=== PATIENT | male | born 1985 ===

== ENCOUNTER 2025-01-14 14:49 | Outpatient (AMB) | payer OTHER, SELFPAY ==
--- NOTE | 2025-01-14 14:51 | A.OFFPC_ITS ---
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 Trial Manager Required: No Accompanied by: Self / Same As Patient Allergies No Known Allergies Allergy (Verified 01/14/25 14:52) Tobacco use date assessed: 01/14/25 Dental Screening Dental Screen Date: 01/14/25 Did you have a dental visit in the last 12 months?: Yes Did you have a dental problem in the last 6 months where you did not have access to dental care?: No Was dental information given to patient?: Patient has dentist HPI HPI Comments History of Present Illness Details History of Present Illness The patient is a 39-year-old male presenting with heartburn, lumps on the body, and concerns about sleep apnea. Gastroesophageal Reflux Disease (GERD): - The patient reports experiencing heart burn daily, particularly at night, which sometimes requires inducing vomiting for relief. - The symptoms have been persistent and are exacerbated by lying down shortly after eating. - The patient consumes a diet high in ju nk food and has a history of substance use, which may contribute to the condition. Obstructive Sleep Apnea (suspected): - The patient reports heavy snoring and waking up gasping for air, which suggests possible obstructive sleep apnea. - The patient experiences daytime sleepi ness, particularly when not actively engaged in work. Lipoma (suspected): - The patient has a lump on the left jaw line present for approximately three years, which has grown slightly over time. - Another lump is located on the lower b ack, present for about four years, with no associated pain. Obesity, Class 1: - The patient's BMI is in the Class 1 ob esity range, attributed to a diet high in junk food and limited physical activity. History of cocaine use: - The patient has a history of cocaine u se for four years, now abstinent for one year. - The patient experienced an overdose tw o years ago, which served as a wake-up call to cease usage. Health Maintenance - Blood work including CBC, liver and ki dney function tests, electrolytes, hemoglobin A1c, lipid profile, TSH, vitamin D, hepatitis B and C, HIV, and STI screening were planned. - Lifestyle modifications discussed incl ude dietary changes and weight management strategies. Review of Systems - Gastrointestinal: Reports daily heartb urn, especially at night. Denies abdominal pain. - Respiratory: Reports heavy snoring and waking up gasping for air. Denies dyspnea during the day. - General: Denies fever, chills, or sign ificant weight loss. 10-point ROS reviewed and negative excep t as noted in HPI Current Substance Use - The patient smokes cigarettes, approxi mately 10 per day, and uses marijuana regularly. Substance Use History - The patient has a history of cocaine u se for four years, now abstinent for one year. - The patient experienced an overdose tw o years ago, which served as a wake-up call to cease usage. Past Medical History - History of cocaine use with a signific ant overdose event two years ago. 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 - The patient has a history of substance use, including cocaine, cigarettes, and marijuana. - The patient has a family, including a and children, and recently became a grandfather. Physical Exam - Respiratory: Lungs clear to auscultati on bilaterally - General: No swelling of legs, no abdom inal pain reported - Oral: No abnormalities noted upon insp ection Discussion Notes I discussed with the patient the importance of addressing his heartburn through lifestyle modifications, such as avoiding lying down immediately after eating and reducing junk food intake. We also talked about the potential need for an ultrasound to evaluate the lumps and a home sleep study to assess for sleep apnea. I recommended an electrocardiogram to monitor heart health due to his history of cocaine use. Follow-up was advised to review lab results and assess the effectiveness of the prescribed omeprazole. Plan 1. Gastro-esophageal reflux disease with out esophagitis K21.9 - Prescribed omeprazole 20 mg daily. - Suggested lifestyle modifications rega rding diet and meal timing. 2. Obstructive Sleep Apnea (Suspected) - Proposed a home sleep study for diagno sis. 3. Lipoma (Suspected) - Planned ultrasound evaluation of lumps . 4. Obesity, Class 1 - Discussed dietary changes and increase d physical activity to aid weight loss. 5. History Of Cocaine Use - Recommended an electrocardiogram to as sess cardiac function due to past cocaine use. Patient Instructions - Take omeprazole 20 mg every morning as prescribed. - Wait at least two hours after eating b efore lying down. - Reduce intake of junk food and conside r healthier dietary options. - Follow up in two weeks to review lab r esults and discuss the effectiveness of treatment. PFSH Family History (Updated 01/14/25 @ 15:10 by Yohana Mccoy MA) Father No problems noted. Mother Cancer Social History (Updated 01/14/25 @ 15:10 by Yohana Mccoy MA) Housing: House Alcohol intake: current Alcohol intake frequency: holidays/special occasions only Patient Tobacco Use Status: Current everyday Tobacco user Cigarettes Per Day: 10 Substance Use Type: Marijuana service: No Current occupational status: employed Cognitive needs: No Hearing needs: No Vision needs: No Questionnaire PHQ-9 Over the last 2 weeks, how often have you been bothered by any of the following problems? 1. Little interest or pleasure in doing things: not at all 2. Feeling down, depressed, or hopeless: not at all 3. Trouble falling or staying asleep, or sleeping too much: not at all 4. Feeling tired or having little energy: nearly every day 5. Poor appetite or overeating: not at all 6. Feeling bad about yourself - or that you are a failure or have let yourself or your family down: not at all 7. Trouble concentrating on things, such as reading the newspaper or watching television: not at all 8. Moving or speaking so slowly that other people could have noticed. Or the opposite - being so fidgety or restless that you have been moving around a lot more than usual: not at all 9. Thoughts that you would be better off or of hurting yourself in some way: not at all Total score: 3 Depression Screening Interpretation: Negative Depression Screening Done: Yes Source: Developed by Drs. Luis Ceja, Tammy Velez, Billy Brown and colleagues, with an educational kelly from [employer]. Thrive Questionnaire Date Thrive assessed: 01/14/25 I am a: Patient What is your living situation today?: I have a steady place to live Within the past 12 months, did the food you bought not last and you didn't have the money to get more?: Never true Within the past 12 months, did you worry whether your food would run out before you got money to buy more?: Never true Do you have trouble paying for medicines?: No Do you have trouble getting transportation to medical appointments?: No Do you have trouble paying your heating and electricity bill?: No Do you have trouble taking care of your child, family member or friend?: No Are you currently unemployed and looking for a job?: Yes Are you interested in more education?: No Please select the resources that you would like help with: None Currently or been in a relationship where the following occur: No concerns reported THRIVE Score: 0 AUDIT C Alcohol Use Questionnaire (AUDIT-C) 1. How often do you have a drink containing alcohol?: Monthly or less 2. How many drinks containing alcohol do you have on a typical day when you are drinking?: 1 or 2 3. How often do you have six or more drinks on one occasion?: Never Total Score: 1 WM-7 AMB Questionnaire WM-7 Date WM - 7 assessed: 01/14/25 Feeling nervous, anxious, or on edge: 0 = Not at all Not being able to stop or control worryin = Not at all Worrying too much about different things: 0 = Not at all Trouble relaxin = Not at all Being so restless that it is hard to sit still: 0 = Not at all Becoming easily annoyed or irritable: 0 = Not at all Feeling afraid as if something awful might happen: 0 = Not at all Total WM-7 score (0-4 normal; 5-9 mild; 10-14 moderate; 15-21 severe): 0 Source: Developed by Drs. Luis Ceja, Tammy Velez, Billy Brown and colleagues, with an educational kelly from [employer]. Physical exam (Primary Care) Vital Signs: Last Vital Signs Temp 97.5 F 01/14/25 15:11 Pulse 89 01/14/25 15:11 Resp 16 01/14/25 15:11 BP 114/82 01/14/25 15:11 Pulse Ox 96 01/14/25 15:11 Oxygen Delivery Method Room Air 01/14/25 15:11 BMI result Body Mass Index 32.2 Tobacco/Smoking Status: Tobacco use Status Tobacco use date assessed 01/14/25 01/14/25 14:54 Patient Tobacco Use Status Current everyday Tobacco 01/14/25 15:17 PHQ-9: PHQ-9 Score PHQ-9: Total score 3 01/14/25 15:17 Depression Screening Interpretation: Negative Thrive Assessment: Date of Thrive Assessment Date Thrive assessed 01/14/25 01/14/25 14:54 Currently or been in a relationship where the following occur: No concerns reported Coding Level of Care Code New Pt Level 3 (19637) Diagnoses Establishing care with new doctor, encounter for Z76.89 Routine lab draw Z01.89 Counseling, unspecified Z71.9 Encounter for screening, unspecified Z13.9 Class 1 obesity E66.811 Snoring R06.83 History of cocaine use F14.91 History of drug overdose Z91.89 History of hypertension Z86.79 Fatigue R53.83 Screening for depression Z13.31 Screening for diabetes mellitus Z13.1 Screening for lipoid disorders Z13.220 Mass of jaw M27.8 Mass on back R22.2 Gastric reflux K21.9 Assessment & Plan Assessment & Plan (1) Establishing care with new doctor, encounter for: Code(s): Z76.89 - Persons encountering health services in other specified circumstances (2) Routine lab draw: Code(s): Z01.89 - Encounter for other specified special examinations (3) Counseling, unspecified: Code(s): Z71.9 - Counseling, unspecified (4) Encounter for screening, unspecified: Code(s): Z13.9 - Encounter for screening, unspecified (5) Class 1 obesity: Code(s): E66.811 - Obesity, class 1 (6) Snoring: Code(s): R06.83 - Snoring (7) History of cocaine use: Code(s): F14.91 - Cocaine use, unspecified, in remission (8) History of drug overdose: Code(s): Z91.89 - Other specified personal risk factors, not elsewhere classified (9) History of hypertension: Code(s): Z86.79 - Personal history of other diseases of the circulatory system (10) Fatigue: Code(s): R53.83 - Other fatigue (11) Screening for depression: Code(s): Z13.31 - Encounter for screening for depression (12) Screening for diabetes mellitus: Code(s): Z13.1 - Encounter for screening for diabetes mellitus (13) Screening for lipoid disorders: Code(s): Z13.220 - Encounter for screening for lipoid disorders (14) Mass of jaw: Code(s): M27.8 - Other specified diseases of jaws (15) Mass on back: Code(s): R22.2 - Localized swelling, mass and lump, trunk (16) Gastric reflux: Code(s): K21.9 - Gastro-esophageal reflux disease without esophagitis Plan Orders: Orders Complete Blood Count Auto Diff Today Z13.9 - Encounter for screening, unspecifi ed, Z76.89 - Persons encountering health services in other specified circumstances Hepatitis B Surface Antigen Today Z13.9 - Encounter for screening, unspecified, Z76.89 - Persons encountering health services in other specified circumstances Magnesium Today Z13.9 - Encounter for screening, unspecified, Z76.89 - Persons encountering health services in other specified circumstances UA CC w/rflx Micro + Cult Today Z13.9 - Encounter for screening, unspecified, Z76.89 - Persons encountering health services in other specified circumstances Vitamin D 1,25 dihydroxy Today Z13.9 - Encounter for screening, unspecified, Z76.89 - Persons encountering health services in other specified circumstances Chlamydia Species Ab Panel Today Z13.9 - Encounter for screening, unspecified, Z76.89 - Persons encountering health services in other specified circumstances CT NG by PCR Urine Today Z13.9 - Encounter for screening, unspecified, Z76.89 - Persons encountering health services in other specified circumstances Syphilis Screen Today Z13.9 - Encounter for screening, unspecified, Z76.89 - Persons encountering health services in other specified circumstances TSH reflex Free T4 Today Z13.9 - Encounter for screening, unspecified, Z76.89 - Persons encountering health services in other specified circumstances ECG 12 lead EKG Today F14.91 - Cocaine use, unspecified, in remission US soft tiss head and/or neck Today M27.8 - Other specified diseases of jaws US abdomen complete Today R22.2 - Localized swelling, mass and lump, trunk Comprehensive Met. Panel Today Z13.9 - Encounter for screening, unspecified, Z76.89 - Persons encountering health services in other specified circumstances Hemoglobin A1c Today Z13.9 - Encounter for screening, unspecified, Z76.89 - Persons encountering health services in other specified circumstances Hepatitis B Surface Antibody Today Z13.9 - Encounter for screening, unspecified, Z76.89 - Persons encountering health services in other specified circumstances Hepatitis C Antibody Today Z13.9 - Encounter for screening, unspecified, Z76.89 - Persons encountering health services in other specified circumstances HIV Ab/Ag Today Z13.9 - Encounter for screening, unspecified, Z76.89 - Persons encountering health services in other specified circumstances Lipid Panel Today Z13.9 - Encounter for screening, unspecified, Z76.89 - Persons encountering health services in other specified circumstances RT home sleep study Today R06.83 - Snoring Medications: New omeprazole 20 mg PO DAILY 30 caps 0RF
[2025-01-14 15:11] VITALS: BP 114/82; PULSE 89; RESP 16; TEMP 36.4; O2SAT 96; BMI 32.2
== END 2025-01-14 15:50 | disposition home or self-care (01) ==
LOC: HO.HMCFMS 14:50
PROVIDERS: PCP Student in an Organized Health Care Education/Training Program; Visit Provider Student in an Organized Health Care Education/Training Program
DX: K21.9 Gastro-esophageal reflux disease without esophagitis (principal); R06.83 Snoring; F14.91 Cocaine use, unspecified, in remission; R53.83 Other fatigue; M27.8 Other specified diseases of jaws; E66.811 Obesity, class 1; R22.2 Localized swelling, mass and lump, trunk

== ENCOUNTER 2025-01-14 14:49 | Outpatient (REF) | payer OTHER, SELFPAY ==
[2025-01-14 17:36] LABS: Appearance Urine Clear; Glucose Urine UA Negative (Negative); PH 6.5 (5.0-9.0); Specific Gravity - Urine 1.020 (1.005-1.025)
[2025-01-14 17:39] LABS: MANUAL DIFF FLAG NO
[2025-01-14 17:48] LABS: Hematocrit 47.7 % (42.0-52.0); Hemoglobin 16.5 g/dl (14.0-18.0); Imm Gran Abs Auto 0.03 X10*3/uL (0.00-0.03); Imm Gran Pct Auto 0.4 % (0.0-0.4); Lymphocytes Absolute Auto 3.2 X10*3/uL (1.2-4.9); Mean Corpuscular HGB Conc 34.6 g/dl (31.0-36.0); Mean Corpuscular Hemoglobin 29.1 pg (27.0-33.0); Mean Corpuscular Volume 84.1 fL (80.0-98.0); NRBC Abs Auto 0.000 X10*3/uL (0.0-0.012); NRBC Pct Auto 0.0 /100WBC (0.0-0.2); Platelet Count 360 X10*3/uL (160-400); Red Blood Count 5.67 X10*6/uL (4.60-5.80); White Blood Count 8.5 X10*3/uL (4.8-10.8)
[2025-01-14 18:11] LABS: Alanine Aminotransferase 45 U/L (0-40); Albumin Level 4.7 g/dL (3.5-5.0); Alkaline Phosphatase 86 U/L (39-117); Anion Gap 14 (12-20); Aspartate Amino Transferase 64 U/L (5-37); Blood Urea Nitrogen 17 mg/dL (9-16); Calcium 9.4 mg/dL (8.4-10.2); Carbon Dioxide 26 mmol/L (22-29); Chloride 106 mmol/L (96-108); Cholesterol 267 mg/dL (<200); Estimated Glomerular Filt Rate 55; HDL Cholesterol 40 mg/dL (>40); Magnesium 2.3 mg/dL (1.6-2.6); Potassium 3.7 mmol/L (3.3-5.1); Sodium 142 mmol/L (135-145); Total Protein 7.8 g/dL (6.5-8.0); Triglycerides 364 mg/dL (<150)
[2025-01-16 04:59] LABS: Syphilis Screen Nonreactive (Nonreactive)
[2025-01-16 05:17] LABS: HBS Num1 3.63 mIU/mL (0-7.99); HBsAGNum1 0.59 S/CO (0.00-0.99); HIV Num 1 0.04 S/CO (0.00-0.99); Hepatitis B Surface Antigen Negative (Negative); ~HepC Num1 0.07 S/CO (0.00-0.79); ~Hepatitis B Surface Antibody NONREACTIVE (Nonreactive); ~Hepatitis C Antibody Nonreactive (Nonreactive)
[2025-01-20 21:28] LABS: VITAMIN D (1,25 OH) D3 41 pg/mL; Vit D (1,25-Dihydroxy) Total 41 pg/mL (18-72); Vitamin D (1,25 OH) D2 <8 pg/mL
[2025-01-21 13:24] LABS: Chlamydia Pneumoniae Interp. Past Infection; Chlamydia Trachomatis IgA <1:16 titer (<1:16)
== END 2025-01-14 14:50 | disposition home or self-care (01) ==
LOC: HO.HKASLDS 14:49
PROVIDERS: PCP Student in an Organized Health Care Education/Training Program; Visit Provider Student in an Organized Health Care Education/Training Program
DX: Z76.89 Persons encountering health services in other specified circumstances (principal); Z13.9 Encounter for screening, unspecified; Z01.89 Encounter for other specified special examinations; Z13.31 Encounter for screening for depression; Z13.1 Encounter for screening for diabetes mellitus; Z13.220 Encounter for screening for lipoid disorders; M27.8 Other specified diseases of jaws; R06.83 Snoring; R53.83 Other fatigue; R22.2 Localized swelling, mass and lump, trunk; K21.9 Gastro-esophageal reflux disease without esophagitis; E66.811 Obesity, class 1; Z71.9 Counseling, unspecified; F14.91 Cocaine use, unspecified, in remission; Z91.89 Other specified personal risk factors, not elsewhere classified; Z86.79 Personal history of other diseases of the circulatory system
CPT/HCPCS: 36415; 80053; 80061; 81003; 82652; 83036; 83735; 84443; 85025; 86631; 86632; 86706; 86780; 86803; 87340; 87389; 99202

== ENCOUNTER 2025-01-29 08:45 | Outpatient (AMB) | payer OTHER, SELFPAY ==
[2025-01-29 08:48] VITALS: BP 132/88; PULSE 84; RESP 16; TEMP 36.4; O2SAT 99; BMI 32.2
--- NOTE | 2025-01-29 08:48 | A.OFFPC_ITS ---
Vital Signs 01/29/25 08:48 Height 5 ft 7.91 in Weight 211 lb 6 oz BMI 32.2 BP 132/88 Blood Pressure Location Rt brachial Position Sitting Respiration 16 Pulse 84 Pulse Source Pulse Oximeter Temp 97.5 F Temp Source Oral Pulse Oximetry (%) 99 Oxygen Delivery Method Room Air Intake Visit Reasons: 2 week follow up Intake Note: establish care get heart burn all ways and lump on jaw. 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 Chronic Kidney Disease Stage 3: - The patient has been diagnosed with ronic kidney disease stage 3, with an estimated glomerular filtration rate of 55 mL/min/1.73 m?. - There is no known family history of ki dney disease or dialysis use. - The patient reports a history of heavy partying, which may have contributed to the condition. - he also admits using ibuprofen due to toothache Elevated Liver Enzymes: - The patient has elevated liver enzymes , with AST at 64 U/L and ALT at 45 U/L. - The patient admits to recent alcohol c onsumption, which may be contributing to the liver enzyme elevation. Hypertriglyceridemia: - The patient's triglyceride level is el evated at 367 mg/dL, significantly above the normal cutoff of 150 mg/dL. Hypercholesterolemia: - The patient's cholesterol level is lamonte vated at 267 mg/dL, with LDL cholesterol at 155 mg/dL. Fatty Liver Disease (suspected): - The patient is suspected to have fatty liver disease, and an ultrasound of the liver is planned to confirm the diagnosis. Review of Systems - General: Reports feeling low energy. 10-point ROS reviewed and negative excep t as noted in HPI Past Medical History Health Maintenance - Lifestyle modifications discussed, inc luding alcohol cessation and dietary changes. - Referral to a member service specialist for dietary management. Physical Exam General: Well-appearing, in no acute distress. Vital signs: Within normal limits. HEENT: Normocephalic, atraumatic. PERRLA, EOMI. Conjunctiva clear, sclera anicteric. Oropharynx clear, mucous membranes moist. TMs intact bilaterally. Neck: Supple, no lymphadenopathy, no thyromegaly, no JVD or carotid bruits. Cardiovascular: RRR, normal S1/S2, no murmurs, rubs, or gallops. Peripheral pulses 2+ and symmetric. No edema. Respiratory: Lungs clear to auscultation bilaterally, no wheezes, rales, or rhonchi. Normal effort. Abdomen: Soft, non-tender, non-distended. Normoactive bowel sounds. No hepatosplenomegaly, no masses. MSK: Full range of motion, no joint swelling or deformity. Normal gait. Skin: Warm, dry, intact. No rashes, lesions, or pallor. Neuro: Alert and oriented x3. Cranial nerves II-XII intact. Strength 5/5 throughout. Sensation intact. Reflexes 2+ symmetric. Normal coordination and gait. Psych: Appropriate mood and affect. Normal judgment and insight. Plan 1. Chronic kidney disease, stage 3 unspe cified N18.30 HCC 138 - Monitor kidney function and obtain an ultrasound of the kidneys to assess structural changes. - Advise cessation of nephrotoxic medica tions such as ibuprofen. 2. Abnormal levels of other serum enzyme s R74.8 - Plan for an ultrasound of the liver to evaluate for fatty liver disease. - Recommend alcohol cessation to reduce liver strain. 3. Mixed hyperlipidemia E78.2 - Referral to a member service specialist for dietary management to address elevated triglycerides. 4. Hypercholesterolemia - Lifestyle modifications including diet olena changes and referral to a member service specialist. 5. Fatty Liver Disease (Suspected) - Plan for an ultrasound of the liver to confirm the diagnosis of fatty liver disease. Discussion Notes I discussed with the patient the findings of chronic kidney disease stage 3 and elevated liver enzymes. We talked about the importance of lifestyle modifications, including alcohol cessation and dietary changes, to manage these conditions. I recommended obtaining ultrasounds of the kidneys and liver to further evaluate the structural status and potential fatty liver disease. The patient was advised to avoid nephrotoxic medications like ibuprofen. A referral to a member service specialist was made to assist with dietary management. Follow-up will be scheduled after imaging results are available. Patient was informed and verbally consented to the use of an ambient scribe for clinic note documentation during this visit. Patient Instructions - Avoid alcohol and nephrotoxic medicati ons like ibuprofen. - Follow a healthy diet and consider con sulting with a member service specialist. - Schedule and complete ultrasounds of t he kidneys and liver. - Return for follow-up after imaging res ults are available. [facility] Medical History (Updated 01/29/25 @ 08:52 by Clarence Hopkins MD) Class 1 obesity Family History (Updated 01/14/25 @ 15:10 by Yohana Mccoy MA) Father No problems noted. Mother Cancer Social History (Updated 01/14/25 @ 15:10 by Yohana Mccoy MA) Housing: House Alcohol intake: current Alcohol intake frequency: holidays/special occasions only Patient Tobacco Use Status: Current everyday Tobacco user Cigarettes Per Day: 10 Substance Use Type: Marijuana service: No Current occupational status: employed Cognitive needs: No Hearing needs: No Vision needs: No Questionnaire PHQ-9 Over the last 2 weeks, how often have you been bothered by any of the following problems? 1. Little interest or pleasure in doing things: not at all 2. Feeling down, depressed, or hopeless: not at all 3. Trouble falling or staying asleep, or sleeping too much: not at all 4. Feeling tired or having little energy: nearly every day 5. Poor appetite or overeating: not at all 6. Feeling bad about yourself - or that you are a failure or have let yourself or your family down: not at all 7. Trouble concentrating on things, such as reading the newspaper or watching television: not at all 8. Moving or speaking so slowly that other people could have noticed. Or the opposite - being so fidgety or restless that you have been moving around a lot more than usual: not at all 9. Thoughts that you would be better off or of hurting yourself in some way: not at all Total score: 3 Depression Screening Interpretation: Negative Depression Screening Done: Yes Source: Developed by Drs. Luis Ceja, Tammy Velez, Billy Brown and colleagues, with an educational kelly from [employer]. Thrive Questionnaire Date Thrive assessed: 01/14/25 I am a: Patient What is your living situation today?: I have a steady place to live Within the past 12 months, did the food you bought not last and you didn't have the money to get more?: Never true Within the past 12 months, did you worry whether your food would run out before you got money to buy more?: Never true Do you have trouble paying for medicines?: No Do you have trouble getting transportation to medical appointments?: No Do you have trouble paying your heating and electricity bill?: No Do you have trouble taking care of your child, family member or friend?: No Are you currently unemployed and looking for a job?: Yes Are you interested in more education?: No Please select the resources that you would like help with: None Currently or been in a relationship where the following occur: No concerns reported THRIVE Score: 0 AUDIT C Alcohol Use Questionnaire (AUDIT-C) 1. How often do you have a drink containing alcohol?: Monthly or less 2. How many drinks containing alcohol do you have on a typical day when you are drinking?: 1 or 2 3. How often do you have six or more drinks on one occasion?: Never Total Score: 1 WM-7 AMB Questionnaire WM-7 Date WM - 7 assessed: 01/14/25 Feeling nervous, anxious, or on edge: 0 = Not at all Not being able to stop or control worryin = Not at all Worrying too much about different things: 0 = Not at all Trouble relaxin = Not at all Being so restless that it is hard to sit still: 0 = Not at all Becoming easily annoyed or irritable: 0 = Not at all Feeling afraid as if something awful might happen: 0 = Not at all Total WM-7 score (0-4 normal; 5-9 mild; 10-14 moderate; 15-21 severe): 0 Source: Developed by Drs. Luis Ceja, Tammy Velez, Billy Brown and colleagues, with an educational kelly from [employer]. Physical exam (Primary Care) Tobacco/Smoking Status: Tobacco use Status Tobacco use date assessed 01/14/25 01/14/25 14:54 Patient Tobacco Use Status Current everyday Tobacco 01/14/25 15:17 Depression Screening Interpretation: Negative Thrive Assessment: Date of Thrive Assessment Date Thrive assessed 01/14/25 01/14/25 14:54 Currently or been in a relationship where the following occur: No concerns reported Coding Level of Care Code Est Pt Level 3 (46359) Diagnoses Encounter to discuss test results Z71.2 Azotemia R79.89 Elevated serum creatinine R79.89 Elevated BUN R79.9 Chronic kidney disease (CKD) stage G3a/A1, moderately decreased glomerular filtration rate (GFR) between 45-59 mL/min/1.73 square meter and albuminuria creatinine ratio less than 30 mg/g N18.31 Elevated liver enzymes R74.8 Elevated cholesterol with high triglycerides E78.2 Elevated LDL cholesterol level E78.00 Class 1 obesity E66.811 Assessment & Plan Assessment & Plan (1) Encounter to discuss test results: Code(s): Z71.2 - Person consulting for explanation of examination or test findings (2) Azotemia: Code(s): R79.89 - Other specified abnormal findings of blood chemistry (3) Elevated serum creatinine: Code(s): R79.89 - Other specified abnormal findings of blood chemistry (4) Elevated BUN: Code(s): R79.9 - Abnormal finding of blood chemistry, unspecified (5) Chronic kidney disease (CKD) stage G3a/A1, moderately decreased glomerular filtration rate (GFR) between 45-59 mL/min/1.73 square meter and albuminuria creatinine ratio less than 30 mg/g: Code(s): N18.31 - Chronic kidney disease, stage 3a (6) Elevated liver enzymes: Code(s): R74.8 - Abnormal levels of other serum enzymes (7) Elevated cholesterol with high triglycerides: Code(s): E78.2 - Mixed hyperlipidemia (8) Elevated LDL cholesterol level: Code(s): E78.00 - Pure hypercholesterolemia, unspecified (9) Class 1 obesity: Code(s): E66.811 - Obesity, class 1 Category: Medical Plan Orders: Orders US abdomen limited Today E78.2 - Mixed hyperlipidemia, R74.8 - Abnormal levels of other serum enzymes US retroperitoneal limited Today N18.31 - Chronic kidney disease, stage 3a, R79.89 - Other specified abnormal findings of blood chemistry, R79.9 - Abnormal finding of blood chemistry, unspecified Referrals Nutrition/Dietitian Referral E66.811 - Obesity, class 1
== END 2025-01-29 09:08 | disposition home or self-care (01) ==
LOC: HO.HMCFMS 08:45
PROVIDERS: PCP Student in an Organized Health Care Education/Training Program; Visit Provider Student in an Organized Health Care Education/Training Program
DX: R79.89 Other specified abnormal findings of blood chemistry (principal); R79.9 Abnormal finding of blood chemistry, unspecified; N18.31 Chronic kidney disease, stage 3a; R74.8 Abnormal levels of other serum enzymes; E78.2 Mixed hyperlipidemia; E78.00 Pure hypercholesterolemia, unspecified; E66.811 Obesity, class 1

== ENCOUNTER 2025-01-29 08:45 | Outpatient (REF) | payer OTHER, SELFPAY ==
[2025-01-29 16:11] LABS: CT PCR Urine NOT DETECTED (Not Detect.); NG PCR Urine NOT DETECTED (Not Detect.)
== END 2025-01-29 08:46 | disposition home or self-care (01) ==
LOC: HO.HKASLDS 08:45
PROVIDERS: Visit Provider Student in an Organized Health Care Education/Training Program
DX: Z76.89 Persons encountering health services in other specified circumstances (principal); E66.811 Obesity, class 1; Z68.32 Body mass index [BMI] 32.0-32.9, adult; R74.8 Abnormal levels of other serum enzymes; E78.2 Mixed hyperlipidemia; N18.31 Chronic kidney disease, stage 3a; R79.89 Other specified abnormal findings of blood chemistry; R79.9 Abnormal finding of blood chemistry, unspecified; E78.00 Pure hypercholesterolemia, unspecified; Z20.2 Contact with and (suspected) exposure to infections with a predominantly sexual mode of transmission; F17.200 Nicotine dependence, unspecified, uncomplicated; Z71.2 Person consulting for explanation of examination or test findings; Z71.6 Tobacco abuse counseling; Z71.3 Dietary counseling and surveillance
CPT/HCPCS: 87491; 87591; 99212

== ENCOUNTER 2025-03-26 09:29 | Outpatient (REF) | payer OTHER, SELFPAY ==
--- NOTE | ~2025-03-26 | US_ITS ---
EXAMINATION: US SOFT TISSUE HEAD AND/OR NECK CLINICAL INFORMATION: 39-year-old male, palpable lump left neck, submandibular region. COMPARISON: None available. TECHNIQUE: Linear transducer painting-scale and color Doppler examination with attention to the left submandibular palpable focus was performed. FINDINGS: Within the left submandibular region, possibly within the submandibular gland or directly abutting, there is a hypoechoic lobular mass measuring 2.4 x 1.5 x 2.0 cm, with good through transmission, internal color Doppler flow, and a suggestion of a small fatty hilum. This appears to correlate well with the palpable focus. This most likely represents a lymph node although other etiologies are not excluded. No additional abnormality is evident. US/US soft tiss head and/or neck IMPRESSION: 1. Lobular hypoechoic mass as detailed in the left submandibular region correlating with the area of palpable concern. This has a suggestion of a small fatty hilum and may represent an abnormal lymph node. Other etiologies such as a primary salivary neoplasm are not excluded. Consider dedicated CT neck for more definitive characterization. Electronically signed by: Levy Curtis MD 03/26/2025 10:58 AM [facility]
--- NOTE | ~2025-03-26 | US_ITS ---
EXAMINATION: US ABDOMEN LIMITED CLINICAL INFORMATION: Elevated LFTs. COMPARISON: None available. TECHNIQUE: Real-time imaging of the right upper quadrant abdominal viscera. FINDINGS: PANCREAS: Visualized portions are unremarkable. LIVER: The liver is normal in size. The right hepatic lobe measures 15.4 cm. The liver contour is normal. There is mildly diffusely increased liver parenchymal echogenicity, consistent with hepatic steatosis. No suspicious focal hepatic lesion. There are a few tiny biliary cysts present, the largest measuring 10 mm in the right hepatic lobe. There is no intrahepatic biliary duct dilatation seen. GALLBLADDER: The gallbladder is physiologically distended without evidence of stones, sludge, polyps, wall thickening or pericholecystic fluid. Negative sonographic Hansen's sign. COMMON BILE DUCT: Normal in caliber measuring 0.3 cm in diameter. RIGHT KIDNEY: No hydronephrosis. No suspicious focal parenchymal lesions. The kidney measures 10.4 cm in maximum dimension. There is a echogenic focus in the lower pole measuring 3 mm, possibly a nonobstructing calculus. FREE FLUID: None. US/US abdomen limited IMPRESSION: 1. Mild diffusely increased echogenicity of the liver, suggestive of steatosis. No suspicious liver lesion. 2. Normal gallbladder and bile ducts. 3. Echogenic 3 mm focus in the lower pole of the right kidney, possibly representing a nonobstructing calculus. Electronically signed by: Levy Curtis MD 03/26/2025 10:53 AM [facility]
== END 2025-03-26 09:30 | disposition home or self-care (01) ==
LOC: HO.US 09:29
PROVIDERS: PCP Student in an Organized Health Care Education/Training Program; Visit Provider Student in an Organized Health Care Education/Training Program
DX: M27.8 Other specified diseases of jaws (principal); R74.8 Abnormal levels of other serum enzymes; E78.2 Mixed hyperlipidemia; R22.2 Localized swelling, mass and lump, trunk
CPT/HCPCS: 76536; 76705

== ENCOUNTER → 2025-03-26 09:40 | Outpatient (BNV) | payer OTHER, SELFPAY | PROVIDERS: PCP Student in an Organized Health Care Education/Training Program; Visit Provider Radiology Diagnostic Radiology | DX: R93.421 Abnormal radiologic findings on diagnostic imaging of right kidney (principal); R93.2 Abnormal findings on diagnostic imaging of liver and biliary tract; R22.0 Localized swelling, mass and lump, head | CPT/HCPCS: 76536; 76705 ==

== ENCOUNTER → 2025-04-09 10:41 | Outpatient (REF) | payer OTHER, SELFPAY | LOC: HO.SL 10:41 | PROVIDERS: PCP Student in an Organized Health Care Education/Training Program; Visit Provider Student in an Organized Health Care Education/Training Program | DX: R06.83 Snoring (principal); E66.811 Obesity, class 1; Z68.32 Body mass index [BMI] 32.0-32.9, adult | CPT/HCPCS: 97802 ==

== ENCOUNTER → 2025-04-09 10:54 | Outpatient (BNV) | payer OTHER, SELFPAY | PROVIDERS: PCP Student in an Organized Health Care Education/Training Program; Visit Provider Psychiatry & Neurology Neurology | DX: G47.33 Obstructive sleep apnea (adult) (pediatric) (principal) | CPT/HCPCS: 95806 ==

== ENCOUNTER 2025-04-09 11:24 | Outpatient (AMB) | payer OTHER, SELFPAY ==
--- NOTE | 2025-04-09 11:27 | MHC.AMNUTRGE ---
VS Expanded 04/09/25 11:29 Height 5 ft 7.91 in Weight 211 lb BMI 32.2 Intake Visit Reasons: Obesity, class 1 Allergies No Known Allergies Allergy (Verified 01/29/25 08:52) Nutrition Presentation Details: Pt presents for MNT for obesity class 1 Hx of elevated Tg,Chol Pt reports hx of unhealthy eating/drinking/smoking habits, working on gradual modifications. Chooses high sugar beverages and foods in general. Reports increased appetite all the time B: coffee with milk/sugar/caramel L/D: fast food meals , sweetened beverages snacks: sugary snacks/cereals food frequency fish: 0/wk dairy: 3-4/d fruits: not including ve-3/wk physical activity: ADL Etoh/++ (working on reducing) BS Monitoring Most Recent Diabetes Results: Cholesterol, (<200) 267 mg/dL H 01/14/25 HDL Cholesterol, (>40) 40 mg/dL L 01/14/25 Triglycerides, (<150) 364 mg/dL H 01/14/25 Creatinine, (0.5-1.4) 1.45 mg/dL H 01/14/25 BUN, (9-16) 17 mg/dL H 01/14/25 Sodium, (135-145) 142 mmol/L 01/14/25 Potassium, (3.3-5.1) 3.7 mmol/L 01/14/25 Chloride, (96-108) 106 mmol/L 01/14/25 Carbon Dioxide, (22-29) 26 mmol/L 01/14/25 Calcium, (8.4-10.2) 9.4 mg/dL 01/14/25 AST, (5-37) 64 U/L H 01/14/25 ALT, (0-40) 45 U/L H 01/14/25 Total Protein, (6.5-8.0) 7.8 g/dL 01/14/25 Albumin, (3.5-5.0) 4.7 g/dL 01/14/25 [id number]-Zr.Jeor Equation Height: 5 ft 7.9 in Weight: 211 lb Resting Metabolic Rate: 1857.02 Calculated Activity Level: Mild Activity Calories Needed to Maintain Weight: 2553.40 Diagnosis Nutrition problem #1: overweight/obesity As related to (etiology) #1: lack of nutrit education and excess energy intake As evidenced by (sign/symptom) #1: high BMI and knowledge deficit of diet Monitoring/Goals Nutrition problem monitoring: level of knowledge/skill and weight Nutrition goal/outcome: list 3 high fiber foods (low sugar foods) [facility] Medical History (Updated 01/29/25 @ 08:52 by Clarence Hopkins MD) Class 1 obesity Family History Father No problems noted. Mother Cancer Social History Housing: House Alcohol intake: current Alcohol intake frequency: holidays/special occasions only Patient Tobacco Use Status: Current everyday Tobacco user Cigarettes Per Day: 10 Substance Use Type: Marijuana service: No Current occupational status: employed Cognitive needs: No Hearing needs: No Vision needs: No Assessment & Plan Assessment & Plan (1) Class 1 obesity: Code(s): E66.811 - Obesity, class 1 Category: Medical Plan: current wt: 96kg ( April 24 ) est kcal needs as per MSJ: 2500 est protein needs as per 1 g/kg BW: 100 est fluid needs as per 30 ml/kg BW: 2900 Recommended fiber > 12 g /day and gradually increase up to 25-28 g /day or as tolerated Nutrition topics discussed : Reviewed (R), Pt verbalized understanding (V) , not applicable (N/A) R, : Healthy Plate Method Concept: Reviewed healthier meal options when eating out Reviewed low sugar options R, V, N/A: Carbohydrates: food sources of carbohydrates, relationship of carbohydrates to blood glucose, fatty liver GI health. Recommended total amount of carbohydrates per meals and snack. Differences between simple carbohydrates and complex carbohydrates R, : Lean protein foods including vegan , vegetarian sources of protein. Benefits of protein (including but not limited to healing, nutritional value , benefits in weight loss, glucose control R, V, N/A: Fats : Source of fats, benefits of fats. Difference between saturated and unsaturated fats. Saturated fats and its contribution to inflammation R, V, N/A: Fiber: food sources and role of fiber in the diet (including but not limited to its role as a prebiotic, benefits in constipation, role in IBS , role in glucose control and cholesterol level) R, V, N/A: Hydration: role of hydration and prevention of dehydration or over hydration. Foods and water content. R, V, N/A: Vitamins and Minerals in foods and supplements R, V, N/A: Interpreting food labels, including serving size, macronutrients, vitamins, minerals, allergens, ingredient list , % daily value Patient Instructions: Continue working on reducing alcohol consumption Choose low sugar cereals, and low sugar beverages (see list of options) Coding Level of Care Code Nutr Indiv Intake (95739) Diagnoses Class 1 obesity E66.811 Time Spent (min) 30
[2025-04-09 11:29] VITALS: BMI 32.2
[2025-04-09 13:11] VITALS: BMI 32.2
== END 2025-04-09 14:08 | disposition home or self-care (01) ==
LOC: HO.ENCR 11:25
PROVIDERS: PCP Student in an Organized Health Care Education/Training Program; Visit Provider Dietitian, Registered
DX: E66.811 Obesity, class 1 (principal)

== ENCOUNTER 2025-04-16 15:25 | Outpatient (AMB) | payer OTHER, SELFPAY ==
--- NOTE | 2025-04-16 15:34 | A.OFFPC_ITS ---
Vital Signs 04/16/25 15:38 Height 5 ft 7.9 in Weight 217 lb 6 oz BMI 33.1 BP 123/81 Blood Pressure Location Lt brachial Position Sitting Respiration 18 Pulse 104 H Pulse Source Pulse Oximeter Temp 98.2 F Temp Source Oral Pulse Oximetry (%) 98 Oxygen Delivery Method Room Air Intake Visit Reasons: f/u - sleep study Intake Note: follow up sleep study Dog Food Dough Mixer Required: No Accompanied by: Self / Same As Patient Allergies No Known Allergies Allergy (Verified 04/16/25 15:37) Medication List - Last Reconciled 04/16/25 by Clarence Hopkins MD omeprazole 20 mg PO DAILY Tobacco use date assessed: 01/14/25 Dental Screening Dental Screen Date: 01/14/25 HPI HPI Comments History of Present Illness Details History of Present Illness The patient is a 39 year old male presenting for follow-up to review sleep study results. Severe Obstructive Sleep Apnea: The patient reports a history of heavy snoring and waking up gasping for air. He experiences daytime sleepiness, particularly when not actively engaged at work. The snoring has been disruptive to his marriage, at times requiring him to sleep in a separate room. After waking up gasping, it can take him a significant amount of time to fall back asleep. He rarely feels well-rested. A recent home sleep study confirmed a diagnosis of severe obstructive sleep apnea. Hyperlipidemia: Recent lab work showed elevated triglycerides and other lipids. Obesity: The patient's current weight is 217 lbs, with a corresponding Body Mass Index (BMI) of 33.1. Gastroesophageal Reflux Disease: The patient is currently taking omeprazole. Medications: - Omeprazole Social History: - The patient has been for 20 ye ars. - Reports sleeping in a separate bedroom at times due to his snoring. Diagnostic Results: - Home sleep study: Results are consiste nt with severe obstructive sleep apnea. - Labs: Results show high triglycerides and lipids. Past Medical History - Severe obstructive sleep apnea, newly diagnosed. - Hyperlipidemia - GERD, treated with omeprazole. Health Maintenance - Discussed weight management for improv ement of obstructive sleep apnea. - Advised that treating sleep apnea with CPAP can also help with weight loss, energy levels, and hyperlipidemia. [facility] Medical History (Updated 04/16/25 @ 19:25 by Clarence Hopkins MD) Metabolic syndrome Azotemia Chronic kidney disease, stage 3 Elevated triglycerides with high cholesterol Elevated liver enzymes Hyperlipidemia GERD (gastroesophageal reflux disease) Severe sleep apnea Lipoma Mass in neck Class 1 obesity Family History Father No problems noted. Mother Cancer Social History Housing: House Alcohol intake: current Alcohol intake frequency: holidays/special occasions only Patient Tobacco Use Status: Current everyday Tobacco user Cigarettes Per Day: 10 Substance Use Type: Marijuana service: No Current occupational status: employed Cognitive needs: No Hearing needs: No Vision needs: No Questionnaire Thrive Questionnaire Date Thrive assessed: 01/14/25 I am a: Patient What is your living situation today?: I have a steady place to live Within the past 12 months, did the food you bought not last and you didn't have the money to get more?: Never true Within the past 12 months, did you worry whether your food would run out before you got money to buy more?: Never true Do you have trouble paying for medicines?: No Do you have trouble getting transportation to medical appointments?: No Do you have trouble paying your heating and electricity bill?: No Do you have trouble taking care of your child, family member or friend?: No Are you currently unemployed and looking for a job?: Yes Are you interested in more education?: No Please select the resources that you would like help with: None Currently or been in a relationship where the following occur: No concerns reported THRIVE Score: 0 WM-7 AMB Questionnaire WM-7 Date WM - 7 assessed: 01/14/25 Source: Developed by Drs. Luis Ceja, Tammy Velez, Billy Brown and colleagues, with an educational kelly from [employer]. Review of Systems Narrative Review of Systems - Constitutional: Reports daytime sleepiness and feeling tired. - Respiratory: Reports heavy snoring and waking up gasping for air. 10-point ROS reviewed and negative except as noted in HPI Physical exam (Primary Care) Vital Signs: Last Vital Signs Temp 98.2 F 04/16/25 15:38 Pulse 104 H 04/16/25 15:38 Resp 18 04/16/25 15:38 BP 123/81 04/16/25 15:38 Pulse Ox 98 04/16/25 15:38 Oxygen Delivery Method Room Air 04/16/25 15:38 BMI result Body Mass Index 33.1 Tobacco/Smoking Status: Tobacco use Status Tobacco use date assessed 01/14/25 04/16/25 15:35 Patient Tobacco Use Status Current everyday Tobacco 04/16/25 15:35 Thrive Assessment: Date of Thrive Assessment Date Thrive assessed 01/14/25 04/16/25 15:35 Currently or been in a relationship where the following occur: No concerns reported Narrative Physical Exam General: Well-appearing, in no acute distress. Vital signs: Within normal limits. HEENT: Normocephalic, atraumatic. PERRLA, EOMI. Conjunctiva clear, sclera anicteric. Oropharynx clear, mucous membranes moist. TMs intact bilaterally. Neck: Supple, no lymphadenopathy, no thyromegaly, no JVD or carotid bruits. Cardiovascular: RRR, normal S1/S2, no murmurs, rubs, or gallops. Peripheral pulses 2+ and symmetric. No edema. Respiratory: Lungs clear to auscultation bilaterally, no wheezes, rales, or rhonchi. Normal effort. Abdomen: Soft, non-tender, non-distended. Normoactive bowel sounds. No hepatosplenomegaly, no masses. MSK: Full range of motion, no joint swelling or deformity. Normal gait. Skin: Warm, dry, intact. No rashes, lesions, or pallor. Neuro: Alert and oriented x3. Cranial nerves II-XII intact. Strength 5/5 throughout. Sensation intact. Reflexes 2+ symmetric. Normal coordination and gait. Psych: Appropriate mood and affect. Normal judgment and insight. Coding Level of Care Code Est Pt Level 3 (38939) Add On Problem Visit Only Diagnoses Lipoma D17.9 Mass in neck R22.1 Class 1 obesity E66.811 Severe sleep apnea G47.30 GERD (gastroesophageal reflux disease) K21.9 Hyperlipidemia E78.5 Elevated liver enzymes R74.8 Elevated triglycerides with high cholesterol E78.2 Chronic kidney disease, stage 3 N18.30 Azotemia R79.89 Metabolic syndrome E88.810 Assessment & Plan Assessment & Plan (1) Lipoma: Code(s): D17.9 - Benign lipomatous neoplasm, unspecified Category: Medical (2) Mass in neck: Code(s): R22.1 - Localized swelling, mass and lump, neck Category: Medical (3) Class 1 obesity: Code(s): E66.811 - Obesity, class 1 Category: Medical (4) Severe sleep apnea: Code(s): G47.30 - Sleep apnea, unspecified Category: Medical (5) GERD (gastroesophageal reflux disease): Code(s): K21.9 - Gastro-esophageal reflux disease without esophagitis Category: Medical (6) Hyperlipidemia: Code(s): E78.5 - Hyperlipidemia, unspecified Category: Medical (7) Elevated liver enzymes: Code(s): R74.8 - Abnormal levels of other serum enzymes Category: Medical (8) Elevated triglycerides with high cholesterol: Code(s): E78.2 - Mixed hyperlipidemia Category: Medical (9) Chronic kidney disease, stage 3: Code(s): N18.30 - Chronic kidney disease, stage 3 unspecified Category: Medical (10) Azotemia: Code(s): R79.89 - Other specified abnormal findings of blood chemistry Category: Medical (11) Metabolic syndrome: Code(s): E88.810 - Metabolic syndrome Category: Medical Plan Consent Patient was informed and verbally consented to the use of an ambient scribe for clinic note documentation during this visit. Plan 1. Severe Obstructive Sleep Apnea - A referral will be placed to Sleep Medicine/Pulmonology for management. - CPAP is recommended as the primary treatment to maintain airway patency during sleep. - Alternative options discussed included oral appliances and an ENT evaluation for potential surgical options. 2. Obesity - The patient was advised that he meets criteria for Tirzepatide for weight lo ss, given his diagnosis of severe YANELIS. - This option was presented for his consideration to be used in conjunction with CPAP therapy. - It was explained that weight loss can reduce the excess neck tissue contributing to airway obstruction. 3. Hyperlipidemia - The patient was informed that improved sleep from CPAP therapy is expected to help lower his triglyceride and lipid levels. 4. CKD stage 3/ Azotemia - monitor repeat cmp and possible US kidneys Discussion Notes I reviewed the results of the recent home sleep study with the patient, which confirmed a diagnosis of severe obstructive sleep apnea. I explained that his symptoms of heavy snoring, waking up gasping for air, and daytime sleepiness are caused by this condition, where excess tissue in his neck blocks his airway when he sleeps. I discussed the benefits of treatment, including improved sleep quality, increased energy, and likely improvement in his weight and high lipid levels. I recommended CPAP therapy as the primary treatment and informed him I will place a referral to a sleep medicine specialist for this. We also discussed other potential treatments mentioned in the study report, including oral appliances and surgical evaluation by an ENT. Given his BMI of 33.1 and severe sleep apnea, I advised him he is a candidate for weight loss medication such as Tirzepatide and left this option for him to consider. The patient can follow up with me to discuss these options further. Patient Instructions - Your recent sleep study showed that you have severe obstructive sleep apnea, which is causing you to stop breathing while you sleep. - This condition is the reason for your heavy snoring, waking up gasping for air, and daytime tiredness. - We are referring you to a sleep specialist to get you set up with a CPAP m achine, which provides air pressure to keep your airway open while you sleep. - Using the CPAP should help you feel more rested and energized, and it can also help with weight loss and lowering your high cholesterol. - Please consider the other options we discussed, including weight loss medication (Tirzepatide) and possible evaluation by an ENT surgeon. - You can schedule a follow-up appointment to discuss these options further. Medical Decision Making The patient is a 39-year-old male presenting for review of a home sleep study which confirmed a new diagnosis of severe obstructive sleep apnea (YANELIS). His clinical presentation includes heavy snoring, waking up gasping for air, and significant daytime somnolence. The patient's obesity (BMI 33.1) is a significant contributing factor, leading to airway collapse from excess tissue, and he has comorbid hyperlipidemia. The management plan is multifactorial. The immediate goal is to treat the YANELIS to prevent apneic events and improve sleep quality and daytime function; therefore, a referral to Pulmonology/Sleep Medicine is being placed for initiation of CPAP therapy. Concurrently, addressing his obesity is critical for long-term manag ement. I have offered Tirzepatide as a treatment option, as he meets criteria due to his severe YANELIS. Other options noted on the sleep study report, such as oral appliances or ENT evaluation for surgical options, were discussed as potential future considerations. Total Time Statement 20 min Total time spent caring for the patient today includes pre-visit chart review, documentation, review of laboratory and diagnostic imaging results, medication reconciliation, medically necessary evaluation, counseling on diagnoses, care coordination, ordering appropriate tests and medications, review of tests performed by other providers, reporting test results to the patient, and communication with other healthcare providers. Orders: Orders CT soft tissue neck wo/w IVcon Today R22.1 - Localized swelling, mass and lump, neck
[2025-04-16 15:38] VITALS: BP 123/81; PULSE 104; RESP 18; TEMP 36.8; O2SAT 98; BMI 33.1
== END 2025-04-16 16:13 | disposition home or self-care (01) ==
LOC: HO.HMCFMS 15:26
PROVIDERS: PCP Student in an Organized Health Care Education/Training Program; Visit Provider Student in an Organized Health Care Education/Training Program
DX: D17.9 Benign lipomatous neoplasm, unspecified (principal); R22.1 Localized swelling, mass and lump, neck; E66.811 Obesity, class 1; G47.30 Sleep apnea, unspecified; K21.9 Gastro-esophageal reflux disease without esophagitis; E78.5 Hyperlipidemia, unspecified; R74.8 Abnormal levels of other serum enzymes; E78.2 Mixed hyperlipidemia; N18.30 Chronic kidney disease, stage 3 unspecified; R79.89 Other specified abnormal findings of blood chemistry; E88.810 Metabolic syndrome

== ENCOUNTER → 2025-04-16 15:25 | Outpatient (BNVA) | payer OTHER, SELFPAY | PROVIDERS: PCP Student in an Organized Health Care Education/Training Program; Visit Provider Student in an Organized Health Care Education/Training Program | DX: D17.9 Benign lipomatous neoplasm, unspecified (principal); R22.1 Localized swelling, mass and lump, neck; E66.811 Obesity, class 1; Z68.33 Body mass index [BMI] 33.0-33.9, adult; G47.30 Sleep apnea, unspecified; K21.9 Gastro-esophageal reflux disease without esophagitis; E78.5 Hyperlipidemia, unspecified; R74.8 Abnormal levels of other serum enzymes; E78.2 Mixed hyperlipidemia; N18.30 Chronic kidney disease, stage 3 unspecified; R79.89 Other specified abnormal findings of blood chemistry; E88.810 Metabolic syndrome; Z71.3 Dietary counseling and surveillance | CPT/HCPCS: 99212 ==